=== PATIENT | female | born 1960 | race Caucasian/White ===

== ENCOUNTER → 2017-12-04 | Outpatient (CLI) | payer OTHER ==
[~2017-12-04] MED LIST: CLARINEX5 MG PO; GLUCOPHAGE500 MG PO; L-THYROXINE PO; LISINOPRIL-HCT1 EACH PO; ZOCOR40 MG PO
== END ==
LOC: M.LAB 03:21
DX: Z01.812 Encounter for preprocedural laboratory examination (principal)